=== PATIENT | female | born 1970 | race Caucasian/White ===

== ENCOUNTER 2017-04-05 08:43 | Outpatient (CLI) | payer OTHER ==
--- NOTE | 2017-04-05 09:11 | RAD ---
RIGHT FOOT 3 VIEWS: Date: 04/05/17 HISTORY: Right foot pain. FINDINGS: Lisfranc joint alignment is anatomic. Plantar arch is maintained. A prominent plantar enthesophyte an d small Achilles enthesophyte arise from the posterior aspect of the calcaneus. There is osteophytosi s throughout the hindfoot and midfoot. No acute fracture, dislocation, or aggressive osseous erosions . IMPRESSION: 1. Mild osteoarthritic changes. 2. Prominent plantar heel spur. POS: OFF
== END 2017-04-05 08:44 | disposition home or self-care (01) ==
LOC: RAD-FRANK 08:43
PROVIDERS: ATTEND Nurse Practitioner Family
DX: M79.671 Pain in right foot (principal); M19.071 Primary osteoarthritis, right ankle and foot; M77.8 Other enthesopathies, not elsewhere classified

== ENCOUNTER 2017-10-25 09:45 | Outpatient (CLI) | payer OTHER | END 2017-10-25 09:46 | disposition home or self-care (01) | LOC: BICMRI 09:45 | PROVIDERS: ATTEND Nurse Practitioner Family | DX: M48.062 Spinal stenosis, lumbar region with neurogenic claudication (principal); M48.07 Spinal stenosis, lumbosacral region; M47.896 Other spondylosis, lumbar region; M47.897 Other spondylosis, lumbosacral region | CPT/HCPCS: 72148 ==